=== PATIENT | male | born 1940 ===

== ENCOUNTER 2020-05-24 09:45 | Inpatient (IN) ==
[2020-05-24] MEDS ORDERED: Senna TAB 8.6 mg TAB PO PRN (13:16)
[2020-05-24] MEDS ORDERED: Carbidopa/Levodop 25/100 MG TAB PO SCH (14:00)
[2020-05-24] MEDS ORDERED: Carbidopa/Levodop 25/100 MG TAB PO ONE (20:00)
[2020-05-25 05:33] LABS: ABS Eosinophils 0.1 10^3/ul (0-0.6); ABS Lymphocytes 0.7 10^3/ul (1.0-4.8); ABS Monocytes 0.9 10^3/ul (0-0.8); Eosinophil % 0.5 %; Hematocrit 28 % (42-52); Hemoglobin 8.8 g/dL (14.0-18.0); Lymphocyte % 7.5 %; Mean Corpuscular HGB Conc 32 g/dL (31-36); Mean Corpuscular Hemoglobin 25 pg (27-31); Mean Corpuscular Volume 78 fL (80-94); Platelet Count 311 10^3/uL (150-450); Red Blood Count 3.52 10^6 /uL (4.18-5.48); Red Cell Distribution Width 19 % (10-15); White Blood Count 9.7 10^3/uL (3.5-10.8)
[2020-05-25 05:48] LABS: Albumin 3.1 g/dL (3.2-5.2); Albumin/Globulin Ratio 1.1 (1-3); BUN/Creatinine Ratio 41.5 (8-20); Calcium 8.6 mg/dL (8.6-10.3); EGFR African American 181.5 (>60); Globulin 2.8 g/dL (2-4); Potassium 3.5 mmol/L (3.5-5.0); Total Bilirubin 0.9 mg/dL (0.2-1.0); Total Protein 5.9 g/dL (6.4-8.9)
[2020-05-25] MEDS: Carbidopa/Levodop 25/100 MG TAB PO SCH ×3 (06:37→18:15)
[2020-05-25] MEDS: Docusate LIQ 100 MG/10 ML UDC PO SCH ×2 (09:29→21:01)
[2020-05-25] MEDS: Polyethylene Glycol 3350 17 GM PACKET PO SCH (09:29)
[2020-05-25] MEDS: Cholecalciferol (VIT D3) 1,000 unit TAB PO SCH (09:33)
[2020-05-25] MEDS: Aspirin EC 81 mg TAB.EC (enteric coated) PO SCH (18:15)
[2020-05-26] MEDS: Carbidopa/Levodop 25/100 MG TAB PO SCH ×3 (07:28→18:08)
[2020-05-26] MEDS: Docusate LIQ 100 MG/10 ML UDC PO SCH ×2 (09:14→21:25)
[2020-05-26] MEDS: Polyethylene Glycol 3350 17 GM PACKET PO SCH (09:14)
[2020-05-26] MEDS: Cholecalciferol (VIT D3) 1,000 unit TAB PO SCH (09:14)
[2020-05-26] MEDS ORDERED: D5NS 0.9% 1000 ml BAG 1,000 ML IV SCH (13:00)
[2020-05-26 14:07] LABS: ABS Lymphocytes 0.7 10^3/ul (1.0-4.8); ABS Monocytes 0.9 10^3/ul (0-0.8); Eosinophil % 0.3 %; Hematocrit 29 % (42-52); Hemoglobin 9.5 g/dL (14.0-18.0); Lymphocyte % 6.4 %; Mean Corpuscular HGB Conc 33 g/dL (31-36); Mean Corpuscular Hemoglobin 26 pg (27-31); Mean Corpuscular Volume 79 fL (80-94); Mean Platelet Volume 7.8 fL (7.4-10.4); Platelet Count 425 10^3/uL (150-450); Red Blood Count 3.71 10^6 /uL (4.18-5.48); Red Cell Distribution Width 20 % (10-15); White Blood Count 10.6 10^3/uL (3.5-10.8)
[2020-05-26 17:48] LABS: Urine Appearance Clear; Urine Bilirubin Negative (Negative); Urine Blood Negative (Negative); Urine Color Amber; Urine Glucose Negative (Negative); Urine Ketones Trace (Negative); Urine Nitrite Negative (Negative); Urine Protein 1+(30 mg/dL) (Negative); Urine Specific Gravity 1.021 (1.010-1.030); Urine Urobilinogen Positive (Negative)
[2020-05-26 17:49] LABS: Urine Bacteria Absent (Absent); Urine Red Blood Cell 1+(3-5/hpf) (Absent); Urine White Blood Cell Absent (Absent)
[2020-05-26] MEDS: Aspirin EC 81 mg TAB.EC (enteric coated) PO SCH (18:09)
[2020-05-27] MEDS: Carbidopa/Levodop 25/100 MG TAB PO SCH ×3 (06:05→18:13)
[2020-05-27] MEDS: Docusate LIQ 100 MG/10 ML UDC PO SCH ×3 (08:38→19:39)
[2020-05-27] MEDS: Polyethylene Glycol 3350 17 GM PACKET PO SCH ×2 (08:38→08:42)
[2020-05-27] MEDS: Cholecalciferol (VIT D3) 1,000 unit TAB PO SCH (08:38)
[2020-05-27] MEDS: Aspirin EC 81 mg TAB.EC (enteric coated) PO SCH (18:13)
[2020-05-28] MEDS: Docusate LIQ 100 MG/10 ML UDC PO SCH ×2 (07:12→19:24)
[2020-05-28] MEDS: Polyethylene Glycol 3350 17 GM PACKET PO SCH (07:12)
[2020-05-28] MEDS: Carbidopa/Levodop 25/100 MG TAB PO SCH ×3 (07:53→17:45)
[2020-05-28] MEDS: Cholecalciferol (VIT D3) 1,000 unit TAB PO SCH (09:05)
[2020-05-28] MEDS: Aspirin EC 81 mg TAB.EC (enteric coated) PO SCH (17:46)
[2020-05-29] MEDS: Carbidopa/Levodop 25/100 MG TAB PO SCH ×3 (08:42→17:33)
[2020-05-29] MEDS: Cholecalciferol (VIT D3) 1,000 unit TAB PO SCH (08:43)
[2020-05-29] MEDS: Docusate LIQ 100 MG/10 ML UDC PO SCH ×2 (08:44→20:11)
[2020-05-29] MEDS: Polyethylene Glycol 3350 17 GM PACKET PO SCH (08:57)
[2020-05-29] MEDS: Aspirin EC 81 mg TAB.EC (enteric coated) PO SCH (17:33)
[2020-05-30] MEDS: Carbidopa/Levodop 25/100 MG TAB PO SCH ×3 (06:56→18:08)
[2020-05-30] MEDS: Cholecalciferol (VIT D3) 1,000 unit TAB PO SCH (08:20)
[2020-05-30] MEDS: Docusate LIQ 100 MG/10 ML UDC PO SCH (08:21)
[2020-05-30] MEDS: Polyethylene Glycol 3350 17 GM PACKET PO SCH (08:21)
[2020-05-30 13:57] LABS: Urine Appearance Cloudy; Urine Bilirubin Negative (Negative); Urine Blood 1+ (Negative); Urine Color Yellow; Urine Glucose Negative (Negative); Urine Ketones Negative (Negative); Urine Nitrite Negative (Negative); Urine Protein Negative (Negative); Urine Specific Gravity 1.019 (1.010-1.030); Urine Urobilinogen Positive (Negative)
[2020-05-30 14:04] LABS: Urine Bacteria Absent (Absent); Urine Red Blood Cell 3+(>10/hpf) (Absent); Urine White Blood Cell 3+(>20/hpf) (Absent)
[2020-05-30] MEDS: Aspirin EC 81 mg TAB.EC (enteric coated) PO SCH (18:08)
[2020-05-31] MEDS: Carbidopa/Levodop 25/100 MG TAB PO SCH ×3 (06:13→17:17)
[2020-05-31] MEDS: Cholecalciferol (VIT D3) 1,000 unit TAB PO SCH (10:42)
[2020-05-31] MEDS: Polyethylene Glycol 3350 17 GM PACKET PO SCH (10:45)
[2020-05-31] MEDS: Aspirin EC 81 mg TAB.EC (enteric coated) PO SCH (17:17)
[2020-06-01] MEDS: Carbidopa/Levodop 25/100 MG TAB PO SCH ×3 (06:26→17:25)
[2020-06-01] MEDS: Polyethylene Glycol 3350 17 GM PACKET PO SCH (08:27)
[2020-06-01] MEDS: Cholecalciferol (VIT D3) 1,000 unit TAB PO SCH (08:28)
[2020-06-01 08:42] LABS: ABS Basophils 0.1 10^3/ul (0-0.2); ABS Eosinophils 0.1 10^3/ul (0-0.6); ABS Lymphocytes 1.1 10^3/ul (1.0-4.8); ABS Monocytes 0.7 10^3/ul (0-0.8); ABS Neutrophils 5.1 10^3/ul (1.5-7.7); Eosinophil % 1.4 %; Hematocrit 29 % (42-52); Hemoglobin 9.1 g/dL (14.0-18.0); Lymphocyte % 15.2 %; Mean Corpuscular HGB Conc 32 g/dL (31-36); Mean Corpuscular Hemoglobin 26 pg (27-31); Mean Corpuscular Volume 81 fL (80-94); Mean Platelet Volume 7.5 fL (7.4-10.4); Platelet Count 465 10^3/uL (150-450); Red Blood Count 3.55 10^6 /uL (4.18-5.48); Red Cell Distribution Width 19 % (10-15)
[2020-06-01 09:05] LABS: ALT < 3 U/L (7-52); AST 15 U/L (13-39); Albumin 3.1 g/dL (3.2-5.2); Alkaline Phosphatase 107 U/L (34-104); Anion Gap 7 mmol/L (2-11); BUN/Creatinine Ratio 29.7 (8-20); Blood Urea Nitrogen 22 mg/dL (6-24); CO2 Carbon Dioxide 27 mmol/L (22-32); Calcium 8.9 mg/dL (8.6-10.3); Chloride 109 mmol/L (101-111); EGFR African American 123.5 (>60); Globulin 3.1 g/dL (2-4); Glucose 84 mg/dL (70-100); Potassium 4.3 mmol/L (3.5-5.0); Sodium 143 mmol/L (135-145); Total Protein 6.2 g/dL (6.4-8.9)
[2020-06-01] MEDS: Aspirin EC 81 mg TAB.EC (enteric coated) PO SCH (17:25)
[2020-06-02] MEDS: Carbidopa/Levodop 25/100 MG TAB PO SCH ×3 (06:26→17:48)
[2020-06-02] MEDS: Polyethylene Glycol 3350 17 GM PACKET PO SCH (08:43)
[2020-06-02] MEDS: Cholecalciferol (VIT D3) 1,000 unit TAB PO SCH (08:45)
[2020-06-02] MEDS: Aspirin EC 81 mg TAB.EC (enteric coated) PO SCH (17:45)
[2020-06-03] MEDS: Carbidopa/Levodop 25/100 MG TAB PO SCH ×3 (05:45→17:48)
[2020-06-03] MEDS: Polyethylene Glycol 3350 17 GM PACKET PO SCH (09:22)
[2020-06-03] MEDS: Cholecalciferol (VIT D3) 1,000 unit TAB PO SCH (09:23)
[2020-06-03] MEDS: Aspirin EC 81 mg TAB.EC (enteric coated) PO SCH (17:47)
[2020-06-04] MEDS: Carbidopa/Levodop 25/100 MG TAB PO SCH ×3 (06:05→17:04)
[2020-06-04] MEDS: Cholecalciferol (VIT D3) 1,000 unit TAB PO SCH (08:29)
[2020-06-04] MEDS: Polyethylene Glycol 3350 17 GM PACKET PO SCH (08:30)
[2020-06-04] MEDS: Aspirin EC 81 mg TAB.EC (enteric coated) PO SCH (17:04)
[2020-06-05] MEDS: Carbidopa/Levodop 25/100 MG TAB PO SCH ×3 (06:31→17:09)
[2020-06-05] MEDS: Cholecalciferol (VIT D3) 1,000 unit TAB PO SCH (08:26)
[2020-06-05] MEDS: Polyethylene Glycol 3350 17 GM PACKET PO SCH (08:30)
[2020-06-05] MEDS: Aspirin EC 81 mg TAB.EC (enteric coated) PO SCH (17:09)
[2020-06-06] MEDS: Carbidopa/Levodop 25/100 MG TAB PO SCH ×3 (05:09→17:21)
[2020-06-06] MEDS: Polyethylene Glycol 3350 17 GM PACKET PO SCH (08:28)
[2020-06-06] MEDS: Cholecalciferol (VIT D3) 1,000 unit TAB PO SCH (08:34)
[2020-06-06] MEDS: Aspirin EC 81 mg TAB.EC (enteric coated) PO SCH (17:19)
[2020-06-07] MEDS: Carbidopa/Levodop 25/100 MG TAB PO SCH ×3 (05:28→17:55)
[2020-06-07] MEDS: Polyethylene Glycol 3350 17 GM PACKET PO SCH (07:31)
[2020-06-07] MEDS: Cholecalciferol (VIT D3) 1,000 unit TAB PO SCH (08:31)
[2020-06-07] MEDS: Aspirin EC 81 mg TAB.EC (enteric coated) PO SCH (17:54)
[2020-06-08] MEDS: Carbidopa/Levodop 25/100 MG TAB PO SCH ×3 (06:28→17:19)
[2020-06-08] MEDS: Polyethylene Glycol 3350 17 GM PACKET PO SCH (08:19)
[2020-06-08] MEDS: Cholecalciferol (VIT D3) 1,000 unit TAB PO SCH (08:20)
[2020-06-08 08:22] LABS: ALT 3 U/L (7-52); Albumin 2.9 g/dL (3.2-5.2); Albumin/Globulin Ratio 0.9 (1-3); Alkaline Phosphatase 106 U/L (34-104); BUN/Creatinine Ratio 21.1 (8-20); Blood Urea Nitrogen 15 mg/dL (6-24); CO2 Carbon Dioxide 23 mmol/L (22-32); Calcium 8.7 mg/dL (8.6-10.3); Chloride 106 mmol/L (101-111); EGFR African American 129.5 (>60); Globulin 3.2 g/dL (2-4); Glucose 88 mg/dL (70-100); Sodium 135 mmol/L (135-145); Total Protein 6.1 g/dL (6.4-8.9)
[2020-06-08 08:27] LABS: Anion Gap 6 mmol/L (2-11)
[2020-06-08 08:51] LABS: ABS Basophils 0.1 10^3/ul (0-0.2); ABS Eosinophils 0.1 10^3/ul (0-0.6); ABS Monocytes 0.4 10^3/ul (0-0.8); ABS Neutrophils 4.4 10^3/ul (1.5-7.7); Eosinophil % 1.5 %; Hematocrit 30 % (42-52); Hemoglobin 9.4 g/dL (14.0-18.0); Lymphocyte % 17.2 %; Mean Corpuscular HGB Conc 31 g/dL (31-36); Mean Corpuscular Hemoglobin 25 pg (27-31); Mean Corpuscular Volume 81 fL (80-94); Mean Platelet Volume 6.8 fL (7.4-10.4); Platelet Count 370 10^3/uL (150-450); Red Blood Count 3.69 10^6 /uL (4.18-5.48); Red Cell Distribution Width 20 % (10-15)
[2020-06-08 09:05] LABS: Potassium Redraw 4.7 mmol/L (3.5-5.0)
[2020-06-08] MEDS: Aspirin EC 81 mg TAB.EC (enteric coated) PO SCH (17:20)
[2020-06-09] MEDS: Carbidopa/Levodop 25/100 MG TAB PO SCH ×3 (06:22→17:54)
[2020-06-09] MEDS: Polyethylene Glycol 3350 17 GM PACKET PO SCH ×2 (07:48→18:07)
[2020-06-09] MEDS: Cholecalciferol (VIT D3) 1,000 unit TAB PO SCH (09:00)
[2020-06-09] MEDS ORDERED: Magnesium CITRATE LIQ 300 ML BTL PO ONE (16:36)
[2020-06-09] MEDS: Aspirin EC 81 mg TAB.EC (enteric coated) PO SCH (17:54)
[2020-06-10] MEDS: Carbidopa/Levodop 25/100 MG TAB PO SCH ×3 (05:52→17:17)
[2020-06-10] MEDS: Polyethylene Glycol 3350 17 GM PACKET PO SCH (09:11)
[2020-06-10] MEDS: Cholecalciferol (VIT D3) 1,000 unit TAB PO SCH (09:11)
[2020-06-10] MEDS ORDERED: Magnesium Hydroxide LIQ 30 ML UDC PO ONE (11:15)
[2020-06-10] MEDS: Aspirin EC 81 mg TAB.EC (enteric coated) PO SCH (17:16)
[2020-06-10] MEDS: Senna TAB 8.6 mg TAB PO SCH (20:50)
[2020-06-11] MEDS: Carbidopa/Levodop 25/100 MG TAB PO SCH ×3 (06:20→17:59)
[2020-06-11] MEDS: Cholecalciferol (VIT D3) 1,000 unit TAB PO SCH (09:03)
[2020-06-11] MEDS: Polyethylene Glycol 3350 17 GM PACKET PO SCH (09:04)
[2020-06-11] MEDS: Aspirin EC 81 mg TAB.EC (enteric coated) PO SCH (18:00)
[2020-06-11] MEDS: Magnesium Hydroxide LIQ 30 ML UDC PO PRN (19:30)
[2020-06-11] MEDS: Senna TAB 8.6 mg TAB PO SCH (20:44)
[2020-06-12] MEDS: Carbidopa/Levodop 25/100 MG TAB PO SCH ×3 (06:32→17:29)
[2020-06-12] MEDS: Polyethylene Glycol 3350 17 GM PACKET PO SCH (09:54)
[2020-06-12] MEDS: Cholecalciferol (VIT D3) 1,000 unit TAB PO SCH (09:54)
[2020-06-12 16:49] LABS: Urine Appearance Turbid; Urine Bilirubin Negative (Negative); Urine Blood 2+ (Negative); Urine Color Amber; Urine Glucose Negative (Negative); Urine Ketones Negative (Negative); Urine Nitrite Positive (Negative); Urine Protein 1+(30 mg/dL) (Negative); Urine Specific Gravity 1.013 (1.010-1.030); Urine Urobilinogen Negative (Negative)
[2020-06-12 16:52] LABS: Urine Bacteria 2+ (Absent); Urine Red Blood Cell 3+(>10/hpf) (Absent); Urine White Blood Cell 3+(>20/hpf) (Absent)
[2020-06-12] MEDS: Aspirin EC 81 mg TAB.EC (enteric coated) PO SCH (17:28)
[2020-06-12] MEDS: Magnesium Hydroxide LIQ 30 ML UDC PO PRN (20:28)
[2020-06-12] MEDS: Senna TAB 8.6 mg TAB PO SCH (21:32)
[2020-06-12] MEDS: Sulfamethox/Trimethoprim DS TAB 800/160 mg PO SCH (21:35)
[2020-06-13] MEDS: Carbidopa/Levodop 25/100 MG TAB PO SCH ×3 (06:29→17:02)
[2020-06-13] MEDS: Polyethylene Glycol 3350 17 GM PACKET PO SCH (09:05)
[2020-06-13] MEDS: Sulfamethox/Trimethoprim DS TAB 800/160 mg PO SCH ×2 (09:07→22:04)
[2020-06-13] MEDS: Cholecalciferol (VIT D3) 1,000 unit TAB PO SCH (09:10)
[2020-06-13] MEDS: Aspirin EC 81 mg TAB.EC (enteric coated) PO SCH (17:00)
[2020-06-13] MEDS: Senna TAB 8.6 mg TAB PO SCH (21:13)
[2020-06-14] MEDS: Carbidopa/Levodop 25/100 MG TAB PO SCH ×3 (06:40→16:59)
[2020-06-14] MEDS: Cholecalciferol (VIT D3) 1,000 unit TAB PO SCH (09:25)
[2020-06-14] MEDS: Sulfamethox/Trimethoprim DS TAB 800/160 mg PO SCH (09:25)
[2020-06-14] MEDS: Polyethylene Glycol 3350 17 GM PACKET PO SCH (09:26)
[2020-06-14] MEDS: Aspirin EC 81 mg TAB.EC (enteric coated) PO SCH (16:59)
[2020-06-14] MEDS: Senna TAB 8.6 mg TAB PO SCH (21:43)
[2020-06-15] MEDS: Carbidopa/Levodop 25/100 MG TAB PO SCH ×3 (06:18→17:35)
[2020-06-15] MEDS: Cholecalciferol (VIT D3) 1,000 unit TAB PO SCH (08:50)
[2020-06-15] MEDS: Polyethylene Glycol 3350 17 GM PACKET PO SCH (08:51)
[2020-06-15 10:19] LABS: ABS Eosinophils 0.2 10^3/ul (0-0.6); ABS Lymphocytes 1.3 10^3/ul (1.0-4.8); ABS Monocytes 0.6 10^3/ul (0-0.8); ABS Neutrophils 4.1 10^3/ul (1.5-7.7); Hematocrit 27 % (42-52); Hemoglobin 8.7 g/dL (14.0-18.0); Mean Corpuscular HGB Conc 32 g/dL (31-36); Mean Corpuscular Hemoglobin 26 pg (27-31); Mean Corpuscular Volume 80 fL (80-94); Mean Platelet Volume 6.4 fL (7.4-10.4); Platelet Count 330 10^3/uL (150-450); Red Blood Count 3.34 10^6 /uL (4.18-5.48); Red Cell Distribution Width 20 % (10-15); White Blood Count 6.3 10^3/uL (3.5-10.8)
[2020-06-15 10:35] LABS: BUN/Creatinine Ratio 21.6 (8-20); Calcium 8.4 mg/dL (8.6-10.3); EGFR African American 90.3 (>60); EGFR Non-African American 74.7 (>60); Globulin 3.1 g/dL (2-4); Potassium 4.7 mmol/L (3.5-5.0); Total Bilirubin 0.2 mg/dL (0.2-1.0); Total Protein 6.1 g/dL (6.4-8.9)
[2020-06-15] MEDS: Aspirin EC 81 mg TAB.EC (enteric coated) PO SCH (17:34)
[2020-06-15] MEDS: Senna TAB 8.6 mg TAB PO SCH (21:07)
[2020-06-16] MEDS: Carbidopa/Levodop 25/100 MG TAB PO SCH ×3 (06:17→18:27)
[2020-06-16] MEDS: Polyethylene Glycol 3350 17 GM PACKET PO SCH (09:34)
[2020-06-16] MEDS: Cholecalciferol (VIT D3) 1,000 unit TAB PO SCH (09:35)
[2020-06-16] MEDS: Aspirin EC 81 mg TAB.EC (enteric coated) PO SCH (18:27)
[2020-06-16] MEDS: Senna TAB 8.6 mg TAB PO SCH (20:25)
[2020-06-17] MEDS: Carbidopa/Levodop 25/100 MG TAB PO SCH ×3 (06:08→17:11)
[2020-06-17] MEDS: Cholecalciferol (VIT D3) 1,000 unit TAB PO SCH (07:46)
[2020-06-17] MEDS: Polyethylene Glycol 3350 17 GM PACKET PO SCH (07:46)
[2020-06-17] MEDS: Aspirin EC 81 mg TAB.EC (enteric coated) PO SCH (17:40)
[2020-06-17] MEDS: Senna TAB 8.6 mg TAB PO SCH (20:57)
[2020-06-18] MEDS: Carbidopa/Levodop 25/100 MG TAB PO SCH ×3 (05:56→17:11)
[2020-06-18] MEDS: Cholecalciferol (VIT D3) 1,000 unit TAB PO SCH (08:13)
[2020-06-18] MEDS: Polyethylene Glycol 3350 17 GM PACKET PO SCH (08:14)
[2020-06-18] MEDS: Aspirin EC 81 mg TAB.EC (enteric coated) PO SCH (17:11)
[2020-06-18] MEDS: Senna TAB 8.6 mg TAB PO SCH (19:43)
[2020-06-19] MEDS: Carbidopa/Levodop 25/100 MG TAB PO SCH ×3 (05:24→17:17)
[2020-06-19] MEDS: Cholecalciferol (VIT D3) 1,000 unit TAB PO SCH (08:04)
[2020-06-19] MEDS: Polyethylene Glycol 3350 17 GM PACKET PO SCH (08:04)
[2020-06-19] MEDS: Aspirin EC 81 mg TAB.EC (enteric coated) PO SCH (17:17)
[2020-06-19] MEDS: Senna TAB 8.6 mg TAB PO SCH (20:10)
[2020-06-20] MEDS: Carbidopa/Levodop 25/100 MG TAB PO SCH (07:21)
[2020-06-20 07:44] VITALS: BP 110/47
[2020-06-20] MEDS: Polyethylene Glycol 3350 17 GM PACKET PO SCH (08:43)
[2020-06-20] MEDS: Cholecalciferol (VIT D3) 1,000 unit TAB PO SCH (08:43)
== END 2020-06-20 10:56 | disposition home health service (06) | DRG 560 ==
LOC: PMRU 13:01
PROVIDERS: ADMIT Physical Medicine & Rehabilitation; ATTEND Physical Medicine & Rehabilitation